=== PATIENT | male | born 1965 | race Caucasian/White ===

== ENCOUNTER 2024-11-19 07:19 | Observation (INO) ==
--- NOTE | 2024-11-19 07:39 | DR.WEAKNES ---
HPI Time Seen Time Seen by Provider: 11/19/24 07:35 Complaints Chief Complaint Doctors Comments: 59 yo M, hx of alcoholic cirrhosis, c/o 24h of expressive aphasia and confusion, worse this morning. Denies other complaints. Timing Symptom Onset: Known (24h [employer]) Context Stroke Symptoms: Aphasia and Acute confusion PMH PMH Past Medical History: Hypothyroidism and Liver Disease Past Surgical History: Yes Surgical History: Other Family History Family Medical History: Diabetes Mellitus, Cancer and Hypertension Social History Do you use any recreational Drugs:: No ROS Review of Systems Neurological: Other (expressive aphasia, confusion) All Other Systems: Reviewed and Negative PE Vital Signs Vitals: Vital Signs Temperature 97.9 F Pulse Rate 73 Pulse Rate 72 Pulse Rate 75 Pulse Rate 70 Pulse Rate 71 Pulse Rate 69 Pulse Rate 71 Pulse Rate 71 Pulse Rate 69 Pulse Rate 76 Pulse Rate 77 Pulse Rate 75 Pulse Rate 86 Pulse Rate 97 Respiratory Rate 14 Respiratory Rate 13 Respiratory Rate 18 Respiratory Rate 12 Respiratory Rate 14 Respiratory Rate 14 Respiratory Rate 14 Respiratory Rate 21 Respiratory Rate 10 Respiratory Rate 10 Respiratory Rate 14 Respiratory Rate 11 Respiratory Rate 20 Blood Pressure 182/86 Blood Pressure 194/76 Blood Pressure 172/88 Blood Pressure 172/88 Blood Pressure 173/84 Blood Pressure 173/84 Blood Pressure 148/89 Blood Pressure 141/81 Blood Pressure 144/87 Blood Pressure 140/82 Blood Pressure 155/89 Blood Pressure 158/89 Blood Pressure 138/83 O2 Sat by Pulse Oximetry 100 O2 Sat by Pulse Oximetry 100 O2 Sat by Pulse Oximetry 100 O2 Sat by Pulse Oximetry 100 O2 Sat by Pulse Oximetry 100 O2 Sat by Pulse Oximetry 100 O2 Sat by Pulse Oximetry 100 O2 Sat by Pulse Oximetry 100 O2 Sat by Pulse Oximetry 100 O2 Sat by Pulse Oximetry 100 O2 Sat by Pulse Oximetry 100 O2 Sat by Pulse Oximetry 100 O2 Sat by Pulse Oximetry 100 O2 Sat by Pulse Oximetry 99 General Limitations: No Limitations General Appearance: Alert and In No Apparent Distress Head Head Exam: Normal Inspection Eyes Eye exam: Normal Appearance Eyelids: Normal Inspection: Bilateral Pupils: Regular, Round: Bilateral Sclera/Conjunctival: Normal Inspection: Bilateral Anterior Chamber: Normal Inspection: Bilateral ENT ENT Exam: Normal Exam Mouth Exam: Normal Inspection Throat Exam: Normal Inspection Neck Neck Exam: Normal Inspection Chest Chest Inspection: Normal Inspection Respiratory Respiratory Exam: Normal Lung Sounds Bilat Respiratory Exam: Bilateral: Clear to Auscultation Cardiovascular Cardiovascular Exam: Regular Rate and Normal Rhythm Abdominal Exam Abdominal Exam: Normal Inspection, Normal Bowel Sounds and Soft Extremities Extremities Exam: Normal Inspection Back Back Exam: Normal Inspection Neurologic Neurological Exam: Alert and Oriented X3 Psychiatric Psychiatric Exam: Normal Affect and Normal Mood Skin Skin Exam: Warm, Dry, Intact and Normal Color ROR Labs Reviewed Laboratory Results Reviewed?: Yes 11/19/24 07:30 11/19/24 07:30 Laboratory: WBC 7.8 X10^3/uL (3.6-10.0) 11/19/24 07:30 RBC 4.83 X10^6/uL (4.7-6.0) 11/19/24 07:30 Hgb 12.0 g/dL (13.5-18.0) L 11/19/24 07:30 Hct 37.0 % (42.0-54.0) L 11/19/24 07:30 MCV 76.6 fL (80.0-100.0) L 11/19/24 07:30 MCH 24.8 pg (27.0-34.0) L 11/19/24 07: MCHC 32.4 g/dL (33.0-35.0) L 11/19/24 07:30 RDW 19.8 % (11.6-16.5) H 11/19/24 07:30 Plt Count 98 X10^3/uL (150.0-450.0) L 11/19/24 07:30 MPV 8.7 fL (7.4-11.0) 11/19/24 07:30 Neut % (Auto) 52.9 % (42.0-75.0) 11/19/24 07:30 Lymph % (Auto) 32.4 % (21.0-51.0) 11/19/24 07:30 [place] % (Auto) 11.3 % (0.0-13.0) 11/19/24 07:30 Eos % (Auto) 2.5 % (0.9-2.9) 11/19/24 07:30 Baso % (Auto) 0.9 % (0.2-1.0) 11/19/24 07:30 Neut # (Auto) 4.1 x10^3/uL (2.2-4.8) 11/19/24 07:30 Lymph # (Auto) 2.5 X10^3/uL (1.3-2.9) 11/19/24 07:30 [place] # (Auto) 0.9 x10^3/uL (0.3-0.8) H 11/19/24 07:30 Eos # (Auto) 0.2 x10^3/uL (0.0-0.2) 11/19/24 07:30 Baso # (Auto) 0.1 X10^3/uL (0.0-0.1) 11/19/24 07:30 Absolute Nucleated RBC 0.1 /100WBC 11/19/24 07:30 PT 16.6 SECONDS (11.8-14.3) 11/19/24 07:30 INR Target Range - 11/19/24 07:30 INR 1.33 (0.8-1.3) H 11/19/24 07:30 APTT 36.5 SECONDS (22.9-36.5) 11/19/24 07:30 PTT Comment - 11/19/24 07:30 Fibrinogen 437 mg/dL (239-489) 11/19/24 07:30 Sodium 146 mmol/L (136-145) H 11/19/24 07:30 Corrected Sodium 147 mmol/L (136-145) H 11/19/24 07:30 Potassium 4.5 mmol/L (3.5-5.1) 11/19/24 07:30 Chloride 110 mmol/L (98-107) H 11/19/24 07:30 Carbon Dioxide 23.4 mmol/L (21-32) 11/19/24 07:30 BUN 19 mg/dL (7-18) H 11/19/24 07:30 Creatinine 1.32 mg/dL (0.70-1.30) H 11/19/24 07:30 Est GFR (MDRD) Af Amer > 60 (>60) 11/19/24 07:30 Est GFR (MDRD) Non-Af 59 (>60) 11/19/24 07:30 Glucose 131 mg/dL (65-99) H 11/19/24 07:30 POC Glucose (mg/dL) 124 mg/dL (65-99) H 11/19/24 07:27 Calcium 10.7 mg/dL (8.5-10.1) H 11/19/24 07:30 Corrected Calcium TNP 11/19/24 07:30 Total Bilirubin 2.40 mg/dL (0.2-1.0) H 11/19/24 07:30 AST 35 Units/L (15-37) 11/19/24 07:30 ALT 31 Units/L (12-78) 11/19/24 07:30 Alkaline Phosphatase 126 Units/L (46-116) H 11/19/24 07:30 Ammonia 35 umol/L (11-32) H 11/19/24 07:30 Creatine Kinase 153 Units/L (39-308) 11/19/24 07:30 Troponin I High Sens 9.7 ng/L (4.0-60.0) 11/19/24 07:30 Total Protein 9.3 g/dL (6.4-8.2) H 11/19/24 07:30 Albumin 4.6 g/dL (3.4-5.0) 11/19/24 07:30 Globulin 4.7 g/dL (2.5-4.5) H 11/19/24 07:30 Albumin/Globulin Ratio 1.0 Ratio (1.1-2.1) L 11/19/24 07:30 Triglycerides 84 mg/dL (0-150) 11/19/24 07:30 Cholesterol 257 mg/dL (0-200) H 11/19/24 07:30 LDL Cholesterol, Calc 164 mg/dL (0-100) H 11/19/24 07:30 HDL Cholesterol 76 mg/dL (40-60) H 11/19/24 07:30 Cholesterol/HDL Ratio 3.4 (0.0-5.0) 11/19/24 07:30 Blood Type A NEGATIVE 11/19/24 07:35 Antibody Screen Negative 11/19/24 07:30 Opioid Opioid Risk Tool Age (Donis box if 16-45): No History of Preadolescent Sexual Abuse: No Total: 0 Total Score Risk Category: Low Risk Copyright: Daryl ESTRADA predicting aberrant behaviors Discharge Plan Diagnosis Discharge Problem: TIA (transient ischemic attack) Alcoholic cirrhosis of liver Qualifiers: Ascites presence: without ascites Qualified Code(s): K70.30 - Alcoholic cirrhosis of liver without ascites Discharge Plan Patient Disposition: ADMITTED INPATIENT Condition: Stable Prescriptions: No Action levothyroxine 25 mcg tablet 25 mcg PO QAM Qty: 90 3RF furosemide 40 mg tablet 40 mg PO QDAY carvedilol 6.25 mg tablet 6.25 mg PO DAILY cyanocobalamin (vitamin B-12) 1,000 mcg Tablet 1,000 mcg PO DAILY cyanocobalamin (vitamin B-12) 1,000 mcg/mL solution 1,000 mcg subcut WEEKLY Patient Comments: [NO ORIGINAL SIG] folic acid 1 mg tablet 1 mg PO QDAY Men's One Daily Tablet 1 tab PO DAILY spironolactone 50 mg tablet 50 mg PO QDAY B Complex Plus Vitamin C Tablet 1 tab PO DAILY lactulose 10 gram/15 mL solution 30 ml PO TID Xifaxan 550 mg tablet 550 mg PO BID Health Concerns: Post Hospitalization: new medications and changes needed to prevent readmission or further decline. Pt educated and given instructions on all concerns. Plan of Treatment: Continue with present treatment and follow up plan. Pt is to keep follow up appointment as instructed and take medications as ordered. Orders to Discharge Patient Discharge Orders: Transfer (Routine); Ordered 11/19/24 Ordered By: George Falk Follow ups/Referrals Follow ups/Referrals: GINGER RHODES [Primary Care Provider, MEDICAL] - 3 days Instructions Stand Alone Forms: Find Help Web Site, Post Hospital Follow Up Care Print Language: ALBANIAN Provider Note Additional Notes accepted by Dr Darby at 11:05a
--- NOTE | 2024-11-19 07:39 | EKG ---
Test Reason : Possible stroke Blood Pressure : */* mmHG Vent. Rate : 86 BPM Atrial Rate : 86 BPM P-R Int : 204 ms QRS Dur : 94 ms QT Int : 366 ms P-R-T Axes : 38 -16 15 degrees QTc Int : 437 ms Normal sinus rhythm Minimal voltage criteria for LVH, may be normal variant ( R in aVL ) Borderline ECG When compared with ECG of 10-DEC-2023 04:52, Nonspecific T wave abnormality now evident in Anterior leads Confirmed by Quang Hills MD ([id number]) on 11/19/2024 4:05:59 PM Referred By: Confirmed By: Quang Hills MD
[2024-11-19] MEDS ORDERED: OMNIPAQUE 350 mg/mL 100 mL BTL 100 ML ONE (07:52)
[2024-11-19 07:57] LABS: MEAN PLATELET VOLUME 8.7 fL (7.4-11.0); RED CELL DISTRIBUTION WIDTH 19.8 % (11.6-16.5)
[2024-11-19 07:59] LABS: INR 1.33 (0.8-1.3)
[2024-11-19 08:09] LABS: CHOL/HDL RATIO 3.4 (0.0-5.0); COR NA(FOR HYPERGLY) 147 mmol/L (136-145); CREATININE 1.32 mg/dL (0.70-1.30); eGFR NON BLACK RACES 59 (>60)
--- NOTE | 2024-11-19 09:03 | CT ---
EXAMINATION: BRAIN W/O CON HISTORY: slurred speech; . COMPARISON STUDY: None. TECHNIQUE: Images were obtained in brain and bone windows. The above CT scan was done with automated exposure control and the mA and kV was adjusted to obtain quality images according to patient size. FINDINGS: There is no acute intracranial hemorrhage, midline shift or edema present. There is atrophy and deep white matter ischemic change due to small vessel disease. Bernal-white matter differentiation is maintained throughout. There are no intra-axial or extra-axial collections noted. . The sinuses are clear. The mastoid air cells are clear. There is no radiographic evidence of depressed skull fracture. Vascular calcification about the skull base.. IMPRESSION: No acute intracranial process. Atrophy and deep white matter ischemic change due to small vessel disease. If clinical symptoms persist consider MRI for further assessment.. THIS IS AN ELECTRONICALLY VERIFIED FINAL REPORT 11/19/2024 8:59 AM - Electronically signed by King Andrew MD
--- NOTE | 2024-11-19 09:06 | CT ---
EXAMINATION: CAROTID CTA HISTORY: slurred speech; . COMPARISON STUDY: CT brain 11/19/2024 TECHNIQUE: CT angiogram of the neck was performed without and with IV administration of IV contrast. Image post processing was performed on a workstation with generation of thick slab maximum intensity projections and volume rendering. FINDINGS: The bilateral common, internal and external carotid arteries are patent and show no hemodynamically significant stenosis. There is some calcified plaque within the carotid bulbs and proximal ICA bilaterally with less than 50% stenosis. The vertebral arteries are codominant. The soft tissues of the neck demonstrate no significant mucosal thickening in the nasopharynx, oropharynx, hypopharynx or larynx. There is no cervical lymphadenopathy. Thyroid gland is unremarkable. Tongue appears normal. Salivary glands appear normal. The sinuses are clear. There are degenerative changes in the cervical spine. The lung apices are clear. IMPRESSION: No hemodynamically significant stenosis in the carotid or vertebral arteries in the neck. The above CT scan was done with automated exposure control and the mA and kV was adjusted to obtain quality images according to patient size. Stenoses were measured using the NASCET method. THIS IS AN ELECTRONICALLY VERIFIED FINAL REPORT 11/19/2024 9:02 AM - Electronically signed by King Andrew MD
--- NOTE | 2024-11-19 09:08 | CT ---
EXAMINATION: BRAIN CTA HISTORY: slurred speech; . COMPARISON STUDY: CT brain 11/19/2024 TECHNIQUE: CT angiogram of the head was performed without and with IV administration of IV contrast. Image post processing was performed on a workstation with generation of thick slab maximum intensity projections and volume rendering. FINDINGS: CTA head: There is atrophy. There is extensive decreased density in deep white matter consistent with chronic microvascular disease. There is no hemorrhage, mass effect or midline shift. There is no abnormal enhancement. The anterior and posterior circulation is intact, without evidence of hemodynamically significant stenosis. Anterior and posterior communicating arteries are seen. No aneurysm is identified. Dural venous sinuses are patent with no persistent filling defects or areas of narrowing.. IMPRESSION: No acute intracranial process. No evidence of hemodynamically significant stenosis or aneurysm involving the [place]. If symptoms persist consider MRI for further assessment. The above CT scan was done with automated exposure control and the mA and kV was adjusted to obtain quality images according to patient size. Stenoses were measured using the NASCET method. THIS IS AN ELECTRONICALLY VERIFIED FINAL REPORT 11/19/2024 9:05 AM - Electronically signed by King Andrew MD
--- NOTE | 2024-11-19 09:13 | RAD ---
EXAM: CHEST, 1 VIEW HISTORY: slurred speech; COMPARISON: 04/10/2021 TECHNIQUE: AP FINDINGS: Unremarkable cardiac silhouette. No focal consolidation, pleural effusion, or pneumothorax. IMPRESSION: No acute cardiopulmonary findings. THIS IS AN ELECTRONICALLY VERIFIED FINAL REPORT 11/19/2024 9:10 AM - Electronically signed by Anatoly England MD
--- NOTE | 2024-11-19 10:21 | DR.CONSULT ---
CONSULT Consultation for Day of: Date: 11/19/24 Allergies Allergies Allergy/AdvReac Type Severity Reaction Status Date / Time phenobarbital Allergy Unknown Verified 09/28/22 11:22 Past Medical History Past Medical History: Hypothyroidism and Liver Disease Past Surgical History Surgical History: Other Family History Family Medical History: Diabetes Mellitus, Cancer and Hypertension Social History Does patient currently use any type of tobacco product: No Have you used tobacco products in the last 12 months: No Type of Tobacco Use: None Does any household member use tobacco: No Alcohol Use: None Medications Home Medications: phenobarbital Allergy (Unknown, Verified 09/28/22 11:22) CONTINUE taking the following medications carvedilol 6.25 mg tablet 6.25 mg PO DAILY 11/19/24 [History] cyanocobalamin (vitamin B-12) 1,000 mcg tablet 1,000 mcg PO DAILY 11/19/24 [ History] cyanocobalamin (vitamin B-12) 1,000 mcg/mL injection solution 1,000 mcg subcut WEEKLY 11/19/24 [History] folic acid 1 mg tablet 1 mg PO QDAY 11/19/24 [History] furosemide 40 mg tablet 40 mg PO QDAY 11/19/24 [History] lactulose 10 gram/15 mL oral solution 30 ml PO TID 11/19/24 [History] multivit,tx w/iron (hematinic) 1 tab PO DAILY 11/19/24 [History] multivitamin with minerals 1 tab PO DAILY 11/19/24 [History] rifaximin 550 mg tablet (Xifaxan) 550 mg PO BID 11/19/24 [History] spironolactone 50 mg tablet 50 mg PO QDAY 11/19/24 [History] Physical Exam Vital Signs: Vital Signs Temperature 97.9 F Pulse Rate 71 Pulse Rate 69 Pulse Rate 76 Pulse Rate 77 Pulse Rate 75 Pulse Rate 86 Pulse Rate 97 Respiratory Rate 21 Respiratory Rate 10 Respiratory Rate 10 Respiratory Rate 14 Respiratory Rate 11 Respiratory Rate 20 Blood Pressure 140/82 Blood Pressure 155/89 Blood Pressure 158/89 Blood Pressure 138/83 O2 Sat by Pulse Oximetry 100 O2 Sat by Pulse Oximetry 100 O2 Sat by Pulse Oximetry 100 O2 Sat by Pulse Oximetry 100 O2 Sat by Pulse Oximetry 100 O2 Sat by Pulse Oximetry 100 O2 Sat by Pulse Oximetry 99
--- NOTE | 2024-11-19 10:23 | DR.CONSULT ---
CONSULT Consultation for Day of: Date: 11/19/24 Allergies Allergies Allergy/AdvReac Type Severity Reaction Status Date / Time phenobarbital Allergy Unknown Verified 09/28/22 11:22 History of Present Illness History of Present Illness: [facility] Patient Name: Dallas Mccarty Date of : 1965 Identification Number: Date of Service: 11/19/2024 07:27:23 Diagnosis: G93.41 - Encephalopathy Metabolic Impression: Metabolic encephalopathy secondary to hyperammonemia I would not recommend IV thrombolytic therapy for 2 reasons the first the patient is out of the window for treatment and second I do not feel the patient's slurred speech and prior word finding difficulty is due to an acute ischemic stroke this was due to the elevated ammonia levels CTA head and neck studies are unremarkable for large vessel occlusion Would still recommend admission for medical management of the elevated ammonia levels MRI of the brain without contrast could be considered as well Our recommendations are outlined below. Recommendations: Stroke/Telemetry Floor Neuro Checks (Q4) Bedside Swallow Eval DVT Prophylaxis IV Fluids, Normal Saline Head of Bed 30 Degrees Euglycemia and Avoid Hyperthermia (PRN Acetaminophen) Hold Anticoagulation for Now Antihypertensives PRN if Blood pressure is greater than 220/120 or there is a concern for End organ damage/contraindications for permissive HTN. If blood pressure is greater than 220/120 give labetalol PO or IV or Vasotec IV with a goal of 15% reduction in BP during the first 24 hours. Sign Out: Discussed with Emergency Department Provider Advanced Imaging: CTA Head and Neck Completed. LVO:No Patient is not a candidate for MEÑO Metrics: Last Known Well: Unknown Dispatch Time: 11/19/2024 07:27:22 Arrival Time: 11/19/2024 07:30:00 Initial Response Time: 11/19/2024 07:28:23 Symptoms: Slurred speech and aphasia. Initial patient interaction: 11/19/2024 07:30:31 NIHSS Assessment Completed: 11/19/2024 07:32:41 Patient is not a candidate for Thrombolytic. Thrombolytic Medical Decision: 11/19/2024 07:32:44 Patient was not deemed candidate for Thrombolytic because of following reasons: LKW outside 4.[address] Head: I personally reviewed all the CT images that were available to me and it showed: No acute intracranial abnormality Primary Provider Notified of Diagnostic Impression and Management Plan on: 11/19/2024 07:47:07 History of Present Illness: Patient is a 59 year old Male. Patient was brought by private transportation with symptoms of Slurred speech and aphasia. 59-year-old male with a past medical history significant for alcoholic liver cirrhosis as well as hypertension and hypothyroidism Patient awoke this morning with slurred speech and word finding difficulties as well as generalized weakness Ammonia level did come back elevated At 35 Past Medical History: Hypertension There is no history of Diabetes Mellitus There is no history of Hyperlipidemia There is no history of Atrial Fibrillation There is no history of Coronary Artery Disease There is no history of Stroke There is no history of Covid-19 There is no history of Seizures There is no history of Migraine Headaches There is no history of Dementia/MCI Other PMH: Alcoholic liver cirrhosis Hypothyroidism Medications: No Anticoagulant use No Antiplatelet use Reviewed EMR for current medications Allergies: Reviewed Social History: Alcohol Use: Yes Drug Use: No Family History: There is no family history of premature cerebrovascular disease pertinent to this consultation ROS : 14 Points Review of Systems was performed and was negative except mentioned in HPI. Past Surgical History: There Is No Surgical History Contributory To Todays Visit Examination: BP(155/89), Pulse(71), Blood Glucose(131) 1A: Level of Consciousness - Alert; keenly responsive + 0 1B: Ask Month and Age - Both Questions Right + 0 1C: Blink Eyes & Squeeze Hands - Performs Both Tasks + 0 2: Test Horizontal Extraocular Movements - Normal + 0 3: Test Visual Diaz - No Visual Loss + 0 4: Test Facial Palsy (Use Grimace if Obtunded) - Normal symmetry + 0 5A: Test Left Arm Motor Drift - No Drift for 10 Seconds + 0 5B: Test Right Arm Motor Drift - No Drift for 10 Seconds + 0 6A: Test Left Leg Motor Drift - No Drift for 5 Seconds + 0 6B: Test Right Leg Motor Drift - No Drift for 5 Seconds + 0 7: Test Limb Ataxia (FNF/Heel-Juarez) - No Ataxia + 0 8: Test Sensation - Normal; No sensory loss + 0 9: Test Language/Aphasia - Normal; No aphasia + 0 10: Test Dysarthria - Normal + 0 11: Test Extinction/Inattention - No abnormality + 0 NIHSS Score: 0 Pre-Morbid Modified [place] Scale: 0 Points = No symptoms at all Spoke with : GUILLERMO Fernandez This consult was conducted in real time using interactive audio and video technology. Patient was informed of the technology being used for this visit and agreed to proceed. Patient located in hospital and provider located at home/office setting. Patient is being evaluated for possible acute neurologic impairment and high probability of imminent or life-threatening deterioration. I spent total of 33 minutes providing care to this patient, including time for face to face visit via telemedicine, review of medical records, imaging studies and discussion of findings with providers, the patient and/or family. Dr Abdulkadir Montanez [facility] For Inpatient follow-up with [facility] physician please call [facility] at . As we are not an outpatient service for any post hospital discharge needs please contact the hospital for assistance. If you have any questions for the [facility] physicians or need to reconsult for clinical or diagnostic changes please contact us via [facility] at . Signature : Abdulkadir Montanez Past Medical History Past Medical History: Hypothyroidism and Liver Disease Past Surgical History Surgical History: Other Family History Family Medical History: Diabetes Mellitus, Cancer and Hypertension Social History Does patient currently use any type of tobacco product: No Have you used tobacco products in the last 12 months: No Type of Tobacco Use: None Does any household member use tobacco: No Alcohol Use: None Medications Home Medications: phenobarbital Allergy (Unknown, Verified 09/28/22 11:22) CONTINUE taking the following medications carvedilol 6.25 mg tablet 6.25 mg PO DAILY 11/19/24 [History] cyanocobalamin (vitamin B-12) 1,000 mcg tablet 1,000 mcg PO DAILY 11/19/24 [History] cyanocobalamin (vitamin B-12) 1,000 mcg/mL injection solution 1,000 mcg subcut WEEKLY 11/19/24 [History] folic acid 1 mg tablet 1 mg PO QDAY 11/19/24 [History] furosemide 40 mg tablet 40 mg PO QDAY 11/19/24 [History] lactulose 10 gram/15 mL oral solution 30 ml PO TID 11/19/24 [History] multivit,tx w/iron (hematinic) 1 tab PO DAILY 11/19/24 [History] multivitamin with minerals 1 tab PO DAILY 11/19/24 [History] rifaximin 550 mg tablet (Xifaxan) 550 mg PO BID 11/19/24 [History] spironolactone 50 mg tablet 50 mg PO QDAY 11/19/24 [History] Physical Exam Vital Signs: Vital Signs Temperature 97.9 F Pulse Rate 71 Pulse Rate 69 Pulse Rate 76 Pulse Rate 77 Pulse Rate 75 Pulse Rate 86 Pulse Rate 97 Respiratory Rate 21 Respiratory Rate 10 Respiratory Rate 10 Respiratory Rate 14 Respiratory Rate 11 Respiratory Rate 20 Blood Pressure 140/82 Blood Pressure 155/89 Blood Pressure 158/89 Blood Pressure 138/83 O2 Sat by Pulse Oximetry 100 O2 Sat by Pulse Oximetry 100 O2 Sat by Pulse Oximetry 100 O2 Sat by Pulse Oximetry 100 O2 Sat by Pulse Oximetry 100 O2 Sat by Pulse Oximetry 100 O2 Sat by Pulse Oximetry 99
[2024-11-19] MEDS ORDERED: TYLENOL 325 MG TAB PO PRN (11:35)
[2024-11-19] MEDS ORDERED: ULTRAM PO PRN (11:35)
[2024-11-19] MEDS ORDERED: ZOFRAN INJ 4 MG VIAL IVP PRN (11:35)
[2024-11-19 11:47] LABS: BLOOD/HEMOGLOBIN,URINE NEGATIVE (NEGATIVE); LEUKOCYTE ESTERASE ,URINE NEGATIVE (NEGATIVE); NITRITES,URINE NEGATIVE (NEGATIVE)
[2024-11-19 11:59] LABS: APPEARANCE,URINE CLEAR (CLEAR); SQUAMOUS EPITHELIAL CELL,UR RARE /HPF (NEGATIVE)
[2024-11-19 12:00] LABS: HYALINE CASTS, URINE FEW /LPF (NEGATIVE)
[2024-11-19] MEDS ORDERED: CONSULT PHARMACY - POTASSIUM & MAGNESIUM XX SCH (12:00)
[2024-11-19 12:23] VITALS: BMI 30.3
[2024-11-19] MEDS: ASPIRIN PO SCH (12:38)
[2024-11-19] MEDS: NS 1,000 ML IV 1,000 ML IV SCH (12:38)
--- NOTE | 2024-11-19 12:58 | MRI ---
EXAM: BRAIN W/O CON HISTORY: EXPRESIVE APHASIS ; COMPARISON: CT same day TECHNIQUE: Multiplanar, multisequence MRI of the brain obtained without IV contrast. FINDINGS: Expected signal in the supratentorial structures and cerebral hemispheres. No evidence of diffusion restriction to suggest acute infarct. No evidence of acute intracranial hemorrhage. The midline structures and brainstem and as well as structures in the posterior fossa demonstrate no significant abnormality. The ventricles appear symmetric and nondilated. No hydrocephalus. The calvarium appears intact. Nonspecific fluid in the left mastoid air cells. Otherwise, the visualized extracranial structures demonstrate no acute process. IMPRESSION: No acute intracranial findings. No evidence of acute infarct. THIS IS AN ELECTRONICALLY VERIFIED FINAL REPORT 11/19/2024 12:55 PM - Electronically signed by Rick Elkins MD
[2024-11-19] MEDS: CHRONULAC PO SCH (15:36)
[2024-11-20 00:07] VITALS: RESP 16
[2024-11-20 04:16] VITALS: BP 122/61; PULSE 64; TEMP 98; O2SAT 100
[2024-11-20 05:32] LABS: MEAN PLATELET VOLUME 8.6 fL (7.4-11.0); RED CELL DISTRIBUTION WIDTH 19.2 % (11.6-16.5)
[2024-11-20 05:39] LABS: COR CA(FOR HYPOALB) 9.3 mg/dL (8.5-10.1); CREATININE 1.24 mg/dL (0.70-1.30); eGFR NON BLACK RACES > 60 (>60)
[2024-11-20] MEDS ORDERED: VITAMIN B-12 PO SCH (09:00)
[2024-11-20] MEDS ORDERED: SYNTHROID 25 mcg TAB PO SCH (09:00)
[2024-11-20] MEDS ORDERED: COREG TAB 6.25 MG PO SCH (09:00)
[2024-11-20] MEDS ORDERED: FOLIC ACID TAB 1 MG PO SCH (09:00)
[2024-11-20] MEDS ORDERED: ALDACTONE TAB 25 MG PO SCH (09:00)
[2024-11-20] MEDS ORDERED: LASIX PO SCH (09:00)
== END 2024-11-20 08:00 | disposition home or self-care (01) ==
LOC: ER 07:22 → MED/SURG 07:22
PROVIDERS: ADMIT Internal Medicine; ATTEND Internal Medicine
DX: R47.81 Slurred speech; R74.8 Abnormal levels of other serum enzymes; I10 Essential (primary) hypertension; E87.0 Hyperosmolality and hypernatremia; R73.9 Hyperglycemia, unspecified; M19.90 Unspecified osteoarthritis, unspecified site; K70.30 Alcoholic cirrhosis of liver without ascites; E72.4 Disorders of ornithine metabolism; G45.8 Other transient cerebral ischemic attacks and related syndromes; R41.0 Disorientation, unspecified; D64.89 Other specified anemias; R53.83 Other fatigue; R47.01 Aphasia; G93.41 Metabolic encephalopathy; E80.6 Other disorders of bilirubin metabolism; M10.9 Gout, unspecified; R79.1 Abnormal coagulation profile; D69.6 Thrombocytopenia, unspecified; E03.8 Other specified hypothyroidism; E83.52 Hypercalcemia